=== PATIENT | female | born 1975 | race American Indian/Alaskan Native ===

== ENCOUNTER 2019-04-15 07:29 | Observation (INO) | payer BC, OTHER ==
--- NOTE | 2019-04-14 21:57 | History and Physical Report ---
History of Present Illness Chief complaint: abnormal uterine bleeding symptomatic leiomyoma anemia History of present illness: 43yo with abnormal uterine bleeding and symptomatic uterine fibroids with anemia presents for scheduled hysterectomy. She has had a negative endometrial biopsy. She denies chest pain or shortness of breath. 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 Assessment and Plan - Patient Problems (1) Abnormal uterine bleeding (AUB) Status: Acute Plan to address problem: 1. CBC, BMP 2. IVF 3. Urine test 4. SCD 5. Ancef 2g IV 6. Risks, benefits and alternatives discussed for laparoscopic assisted vaginal hysterectomy ( LAVH) with ovarian conservation discussed including possible need to convert to exploratory laparotomy, and risks including but not limited to of bleeding, infection, injury to ureter, bladder, bowel. All questions answered and informed consent signed. 7. Proceed, LAVH, ovarian conservation, bilateral salpingectomy. (2) Leiomyoma Status: Acute
[2019-04-15] MEDS: LACTATED RINGERS 1,000 ML IV SCH ×3 (07:12→20:36)
[~2019-04-15 07:29] MED LIST: ANCEF/STERILE WATER 2 GM/20 ML 2 GM/20 ML SYRINGE IV NR; BLOXIVERZ ONE; DIPRIVAN 10 MG/ML IV ONE; NEURONTIN PO NR; ROBINUL ONE; SUBLIMAZE ONE; TRANSDERM-SCOP TD NR; VERSED IV NR; XYLOCAINE MPF 2% ONE; ZEMURON IV ONE; ZOFRAN ONE
--- NOTE | 2019-04-15 08:19 | Anesthesia Day of Surgery ---
Anesthesia Day of Surgery - Day of Surgery Patient Examined: Yes Patient H&P Reviewed: Yes Patient is NPO: Yes
[2019-04-15] MEDS ORDERED: ZOFRAN IV PRN ×2 (08:20→13:40)
[2019-04-15] MEDS ORDERED: DILAUDID IV PRN (08:20)
--- NOTE | 2019-04-15 08:20 | Anesthesia Consultation ---
Anesthesia Consult and Med Hx - Airway Anesthetic Teeth Evaluation: Dentures ROM Head & Neck: Adequate Mental/Hyoid Distance: Adequate Mallampati Class: Class II Intubation Access Assessment: Good - Pulmonary Exam CTA: Yes - Cardiac Exam Cardiac Exam: RRR - Pre-Operative Health Status ASA Pre-Surgery Classification: ASA3 Proposed Anesthetic Plan: General - Pulmonary Hx Smoking: No - Cardiovascular System Hx Hypertension: No ("Borderline") Hx Cardia Arrhythmia: Yes (Paroxsymal afrib takes amiodarone PRN) - Central Nervous System Hx Neuromuscular Disorder: No Hx Psychiatric Problems: No - Other Systems Hx Cancer: No
[2019-04-15 08:28] LABS: BUN/Creatinine Ratio 6; Blood Urea Nitrogen 4 mg/dL (7-17); Calcium 8.6 mg/dL (8.4-10.2); Hemolysis Index 4
[2019-04-15] MEDS ORDERED: MARCAINE 0.5% INFILTRATI ONE (10:36)
[2019-04-15] MEDS ORDERED: NACL 0.9% IR ONE (10:41)
[2019-04-15] MEDS ORDERED: DILAUDID ONE (11:07)
[2019-04-15] MEDS ORDERED: ANCEF ONE (13:09)
[2019-04-15] MEDS ORDERED: MORPHINE IV PRN (13:40)
[2019-04-15] MEDS ORDERED: NARCAN 0.4 MG/1 ML IV PRN (13:40)
[2019-04-15] MEDS ORDERED: PERCOCET 5/325 PO PRN (13:40)
[2019-04-15] MEDS ORDERED: MILK OF MAGNESIA PO PRN (13:40)
--- NOTE | 2019-04-15 13:50 | Operative Report ---
Operative Report Operative Report: DATE OF SURGERY 04/15/2019 Pre-op diagnosis: 1) Abnormal uterine bleeding. 2) Leiomyoma 3) Anemia Post-op diagnosis: 1) Abnormal uterine bleeding. 2) Leiomyoma 3) Anemia PROCEDURE: 1) Laparoscopic-assisted vaginal hysterectomy 2) Bilateral salpingectomy FINDINGS: 1) 12-14wk uterus with multiple leiomyoma 2) Normal appearing bilateral ovaries and tubes Anesthesia: GETHerber Surgeon: GLENN THOMAS Nurse Assessor: VENU GURROLA Estimated blood loss: 100ml Urine clear at close of case Pathology: (1) Uterus 2) Cervix 3) Right and left fallopian tube Specimen disposition: to lab Condition: stable Disposition: PACU 43yo presented for planned hysterectomy due to abnormal uterine bleeding secondary to leiomyoma. Her endometrial biopsy was benign for maalignancy. She had previously underwent a tubal ligation. The risks including but not limited to bleeding, infection, injury to vessels, bladder and/or bowel, air embolism, menopausal symptoms, myocardial infection, stroke and DVT were discussed. B enefits and alternatives were discussed and informed consent signed. PROCEDURE: The patient was taken to OR S3 in stable condition. She was placed on the bed in the supine position and adequate anesthesia was achieved. She wore SCDs for DVT prophylaxis. She received Ancef for infection prophylaxis. She was re- positioned in the dorsal lithotomy position with Burton stirrups She was prepped and draped in the sterile fashion and a time out was done. . A Mustafa Catheter was placed by myself. A sterile speculum was placed per vagina and a single toothed tenaculum was placed on the anterior lip of the cervix. The cervix was dilated using uterine dilators and sounded.. A 37mm V-care uterine manipulator was placed and secured to the cervix. Attention was then turned to the abdomen where a 0.5cm infraumbilical incision was made. A 5mm Applied Fios trocar was placed at the umbilicus under direct visualization and used to insufflate the abdomen with CO2 gas. A right and left lower quadrant 5mm incision was made and 5mm trocars placed under direct visualization. An intrabdominal survey was done with findings as above. The left utero-ovarian ligament was identified and clamped, cauterized and cut securing the ovarian pedicle using the Ethicon Bipolar sealer/divider. The round ligament was then ligated and the mesosalpinx and medial leaf of the broad ligament down to the vesicouterine peritoneum. The same procedure was carried out on the right adnexa. The uterine arteries were then skeletonized and clamped, cut and ligated using bipolar cautery. The uterosacral ligaments were clamped, cauterized, cut. Once the bladder was adequately dissected from the lower uterine segment, the J-hook monopolar cautery was used to create the colpotomy. The uterus was then removed from the pelvis vaginally. The vaginal cuff and pelvic peritoneum were then closed with 0-Vicryl and in a running stitch. The vaginal cuff was then visualized laparoscopically and noted to be hemostatic. The abdominal pressure was lowered and patient taken out of Trendelenburg and no active bleeding was noted. The abdomen was freed of gas and the abdominal tro cars were removed. All skin incisions were closed with 4-0 Vicryl and Dermabond The procedure was ended. All counts were correct x 2. The patient was awakened from anesthesia in stable condition and transported to the PACU. I was present and scrubbed for the entire procedure.
[2019-04-15] MEDS ORDERED: BENADRYL IV PRN (13:59)
[2019-04-15] MEDS ORDERED: TYLENOL PO PRN (13:59)
--- NOTE | 2019-04-15 14:51 | Post Anesthesia Evaluation ---
- Post Anesthesia Evaluation Patient Participated: Yes Airway Patent: Yes Stable Respiratory Function: Yes Nausea/Vomiting: No Temp > 96.8F: Yes Pain Manageable: Yes Adequeate Hydration: Yes Anesthesia Complications: No Block Receding Appropriately: Not Applicable Patient on Ventilator: No
[2019-04-15] MEDS: TORADOL IV SCH (20:36)
[2019-04-15] MEDS: COLACE PO SCH (22:26)
[2019-04-15] MEDS: PROTONIX IV SCH (22:41)
[2019-04-16] MEDS: TORADOL IV SCH (01:32)
[2019-04-16 03:44] LABS: Hematocrit 26.5 % (30.3-42.9); Hemoglobin 8.6 gm/dl (10.1-14.3)
[2019-04-16 04:11] LABS: BUN/Creatinine Ratio 10; Blood Urea Nitrogen 5 mg/dL (7-17); Calcium 8.4 mg/dL (8.4-10.2); Hemolysis Index 4
[2019-04-16] MEDS: LACTATED RINGERS 1,000 ML IV SCH (05:13)
[2019-04-16] MEDS: COLACE PO SCH (10:22)
[2019-04-16] MEDS ORDERED: TORADOL IV ONE (11:00)
[2019-04-16] MEDS: PROTONIX IV SCH (11:36)
--- NOTE | 2019-04-16 13:05 | Progress Note ---
Assessment and Plan - Patient Problems (1) Abnormal uterine bleeding (AUB) Current Visit: No Status: Acute (2) Leiomyoma Current Visit: No Status: Acute (3) Status post laparoscopic assisted vaginal hysterectomy (LAVH) Current Visit: Yes Status: Acute Plan to address problem: Continue routine postop care. Ambulation. Pain meds as needed. Subjective - Subjective Date of service: 04/16/19 Principal diagnosis: S/P LAVH, POD#1 Interval history: Patient is a 43 year old who is S/P LAVH and BSO yesterday. She denies any complaint. She is tolerating regular diet and ambulating without any problem. Objective - Vital Signs Latest vital signs: Vital Signs Temp Pulse Resp BP BP Pulse Ox 04/16/19 12:17 98.6 F 72 20 107/63 100 04/16/19 07:24 98.5 F 81 16 115/67 96 04/16/19 04:00 98.7 F 74 18 119/72 04/16/19 00:00 98.7 F 80 18 118/74 04/15/19 21:29 98.8 F 18 122/75 04/15/19 15:11 98.0 F 70 16 116/75 100 04/15/19 14:54 98.0 F 74 16 100 04/15/19 14:35 16 100 04/15/19 14:15 67 16 118/74 100 04/15/19 14:00 67 12 102/60 100 04/15/19 13:55 77 15 106/65 100 04/15/19 13:50 70 15 104/62 100 04/15/19 13:45 73 16 106/64 100 04/15/19 13:40 73 16 110/61 100 04/15/19 13:35 98.0 F 77 16 110/61 100 Intake and Output 04/15/19 04/16/19 04/16/19 23:59 07:59 15:59 Intake Total 2105 1200 360 Output Total 2300 550 Balance 2105 -1100 -190 Intake: IV 1905 900 Lactated Ringers 1,000 ml 1905 900 @ 100 mls/hr IV DIRECT JANN Rx#:[id number] Oral 200 360 Intake, Free Water 300 Output: Urine 2300 550 Indwelling Catheter 2300 250 Void 300 Other: Total, Intake Amount 200 360 Total, Output Amount 900 300 Voiding Method Indwelling Catheter # Voids Indwelling Catheter 1 Void 1 - Exam Cardiovascular: Present: Normal S1, Normal S2 Lungs: Present: Clear to auscultation Vulva: both: normal Deep Tendon Reflex Grade: Normal +2 - Labs Labs: Abnormal lab results 04/16/19 04/16/19 Range/Units 03:20 03:20 Hgb 8.6 L (10.1-14.3) gm/dl Hct 26.5 L (30.3-42.9) % BUN 5 L (7-17) mg/dL Creatinine 0.5 L (0.7-1.2) mg/dL Glucose 131 H (65-100) mg/dL
[2019-04-16 20:25] VITALS: BP 106/70
--- NOTE | 2019-04-16 20:49 | Progress Note ---
Assessment and Plan - Patient Problems (1) Abnormal uterine bleeding (AUB) Current Visit: No Status: Acute Plan to address problem: Post-op course - recovering well. Plan discharge home with follow-up 7-10 days. (2) Leiomyoma Current Visit: No Status: Acute (3) Anemia Current Visit: Yes Status: Acute Plan to address problem: 1. Etiologies - chronic of anemia disease and acute blood loss 2. Asymptomatic. 3. Discharge home on oral iron antibiotics Subjective - Subjective Principal diagnosis: S/P LAVH, POD#1 Interval history: 43yo with abnormal uterine bleeding and symptomatic uterine fibroids s/p LAVH, bilateral salpingectomy POD#1. She has no complaints. She is tolerating PO (mashed potatoes, strawberries, Chick-fa-la). Her pain is well controlled. She has passed flatus. She is ambulating well and without difficulty. She is urinating without difficulty. She reports minimal vaginal spotting. She desires to be discharged with follow-up in clinic. Objective - Vital Signs Latest vital signs: Vital Signs Temp Pulse Resp BP BP Pulse Ox 04/16/19 20:03 98.6 F 86 18 106/70 99 04/16/19 16:28 98.7 F 90 20 99/70 99 04/16/19 12:17 98.6 F 72 20 107/63 100 04/16/19 07:24 98.5 F 81 16 115/67 96 04/16/19 04:00 98.7 F 74 18 119/72 04/16/19 00:00 98.7 F 80 18 118/74 04/15/19 21:29 98.8 F 18 122/75 Intake and Output 04/16/19 04/16/19 04/16/19 07:59 15:59 23:59 Intake Total 1200 600 120 Output Total 2300 550 Balance -1100 50 120 Intake: IV 900 Lactated Ringers 1,000 ml 900 @ 100 mls/hr IV DIRECT JANN Rx#:[id number] Oral 600 120 Intake, Free Water 300 Output: Urine 2300 550 Indwelling Catheter 2300 250 Void 300 Other: Total, Intake Amount 240 120 Total, Output Amount 900 300 # Voids Indwelling Catheter 1 Void 1 1 - Exam Abdomen: Present: soft, other (incisions (3) clean, dry, intact ) - Labs Labs: Abnormal lab results 04/16/19 04/16/19 Range/Units 03:20 03:20 Hgb 8.6 L (10.1-14.3) gm/dl Hct 26.5 L (30.3-42.9) % BUN 5 L (7-17) mg/dL Creatinine 0.5 L (0.7-1.2) mg/dL Glucose 131 H (65-100) mg/dL
--- NOTE | 2019-04-16 21:01 | Discharge Summary ---
Providers - Providers Date of Admission: 04/15/19 13:40 Attending physician: GLENN THOMAS Primary care physician: MYRNA CHANCE MD Hospitalization Reason for admission: other (scheduled hysterectomy) Procedure: other (laparoscopic assisted vaginal hysterectomy, bilateral salpingectomy) Discharge diagnosis: other (abnormal uterine bleeding, anemia (chronic and acute blood loss), leiomyoma) Hospital course: 43yo multiparous female underwent an LAVH and bilateral salpingectomy for abnormal uterine bleeding. Her post-op course was benign and she was discharge home on POD#1. Condition at discharge: Stable Disposition: DC-01 TO HOME OR SELFCARE - Discharge Diagnoses (1) Abnormal uterine bleeding (AUB) Status: Acute (2) Leiomyoma Status: Acute (3) Anemia Status: Acute Plan - Discharge Medications Prescriptions: Docusate Sodium [Colace] 100 mg PO QHS PRN 10 Days #30 capsule PRN Reason: Constipation Ferrous Sulfate [Feosol 325 MG tab] 325 mg PO BID 30 Days #60 tablet - Provider Discharge Summary Activity: other (No sexual intercourse 8+ weeks, No heavy lifting, No walking stairs, No baths, No exercise. ) Diet: other (Avoid foods that cause gas and constipation) Additional instructions: [] Smoking cessation referral if applicable(refer to patient education folder for contact #) [] Refer to [facility] Booklet Call your doctor immediately for: * Fever > 100.5 * Heavy vaginal bleeding ( >1 pad per hour) * Severe persistent headache * Shortness of breath * Reddened, hot, painful area to leg or breast * Drainage or odor from incision. - Follow up plan Follow up: GLENN THOMAS MD [Staff Physician] - 7 Days MYRNA CHANCE MD [Primary Care Provider] - 7 Days
[2019-04-17] MEDS ORDERED: PROTONIX PO SCH (10:00)
== END 2019-04-16 22:00 | disposition home or self-care (01) ==
LOC: OR 07:29 → OB 13:40
PROVIDERS: ADMIT Obstetrics & Gynecology; ATTEND Obstetrics & Gynecology
DX: D25.9 Leiomyoma of uterus, unspecified (principal); D64.9 Anemia, unspecified
CPT/HCPCS: 36415; 58554; 80048; 81025; 85014; 85018; 86850; 86900; 86901; 88307; 96374; 96375; 96376; A4217; C9113; G0378; J0690; J1170; J1885; J2250; J2405; J2704; J2710; J3010; J7120; 88341; 88342